=== PATIENT | male | born 1995 | race Caucasian/White ===

== ENCOUNTER 2023-10-19 00:04 | Emergency (ER) | payer SELFPAY ==
[2023-10-19 00:05] VITALS: BP 113/67
== END 2023-10-19 00:32 | disposition left against medical advice (07) ==
LOC: ED 00:04
DX: R05.9 Cough, unspecified (principal); R53.83 Other fatigue; R51.9 Headache, unspecified; R00.0 Tachycardia, unspecified; M79.10 Myalgia, unspecified site; R53.81 Other malaise